=== PATIENT | female | born 1950 | race Caucasian/White ===

== ENCOUNTER 2023-06-02 14:12 | Inpatient (IN) | payer OTHER ==
[~2023-06-02] VITALS: Ht 160 cm; Wt 68.0 kg
[2023-06-02 14:15] VITALS: BP 190/108; PULSE 97; RESP 20; TEMP 98.1; O2SAT 98
[2023-06-02 15:09] LABS: BASOPHILS # (AUTO) 0.1 K/uL (0.00-0.22); BASOPHILS % (AUTO) 0.6 % (0.0-2.0); EOSINOPHILS # (AUTO) 0.1 K/uL (0-0.4); EOSINOPHILS % (AUTO) 0.7 % (0.0-4.0); HEMATOCRIT 33.7 % (36-48); HEMOGLOBIN 10.6 g/dL (12.0-16.0); MEAN CORPUSCULAR HEMOGLOBIN 29 pg (27-31); MEAN CORPUSCULAR HGB CONC 32 g/dL (33-37); MEAN CORPUSCULAR VOLUME 90.6 fL (80-94); MONOCYTES # (AUTO) 0.5 K/uL (0.8-1.0); MONOCYTES % (AUTO) 5.5 % (1.7-9.3); NEUTROPHILS # (AUTO) 8.2 K/uL (1.8-7.7); NEUTROPHILS % (AUTO) 83.2 % (42.2-75.2); PLATELET COUNT (AUTO) 159 K/uL (140-450); RED BLOOD CELL COUNT(AUTO) 3.72 MIL/uL (4.20-5.40); RED CELL DISTRIBUTION WIDTH 17.2 % (11.6-13.7); WHITE BLOOD COUNT (AUTO) 9.8 K/uL (4.8-10.8)
[2023-06-02 15:28] VITALS: BP 147/82; PULSE 92; O2SAT 92
[2023-06-02 15:34] LABS: ALANINE AMINOTRANSFERASE 25 U/L (12-78); ALBUMIN 2.7 g/dL (3.4-5.0); ALKALINE PHOSPHATASE 103 U/L (50-136); ANION GAP 9.2 (8-16); ASPARTATE AMINOTRANSFERASE 27 U/L (15-37); CALCIUM 7.7 mg/dL (8.5-10.1); CARBON DIOXIDE 30.5 mmol/L (21-32); CHLORIDE 103 mmol/L (98-107); GLUCOSE 137 mg/dL (74-106); POTASSIUM 4.7 mmol/L (3.5-5.1); SODIUM SERUM 138 mmol/L (136-145); TOTAL BILIRUBIN 0.3 mg/dL (0.0-1.0); TOTAL PROTEIN, SERUM 5.7 g/dL (6.4-8.2); UREA NITROGEN, BLOOD 30 mg/dL (7-18)
[2023-06-02 15:38] LABS: CREATINE KINASE, TOTAL 37 U/L (26-192)
[2023-06-02 15:44] LABS: FREE T4 (FREE THYROXINE) 1.6 ng/dL (0.76-1.46); THYROID STIMULATING HORMONE 5.23 uIU/mL (0.34-3.74)
[2023-06-02] MEDS ORDERED: ASPIRIN 325 MG TAB PO ONE (15:55)
[2023-06-02] MEDS ORDERED: ONDANSETRON 4 MG/2 ML VIAL IVP PRN (17:05)
[2023-06-02] MEDS ORDERED: ALBUTEROL SULFATE/IPRATROPIU 3 ML SOL IH PRN (17:05)
[2023-06-02] MEDS ORDERED: ACETAMINOPHEN 325 MG TAB PO PRN (17:05)
[2023-06-02] MEDS ORDERED: FUROSEMIDE 40 MG/4 ML VIAL IVP SCH (17:05)
[2023-06-02] MEDS ORDERED: MAG SULF 2000 MG/WATER PREMIX 50 ML IV PRN (17:05)
[2023-06-02] MEDS ORDERED: ZOLPIDEM 10 MG TAB PO PRN (17:05)
[2023-06-02] MEDS ORDERED: POTASSIUM CHLORIDE 10 MEQ TABER PO PRN (17:05)
[2023-06-02 17:26] LABS: FLU A ANTIGEN negative (NEGATIVE); FLU B ANTIGEN NEGATIVE (NEGATIVE)
[2023-06-02 19:00] VITALS: BP 149/81; PULSE 80; PULSE 82; PULSE 86; RESP 19; RESP 22; TEMP 98; O2SAT 97
[2023-06-02 19:10] VITALS: BP 149/81; PULSE 96; O2SAT 96
[2023-06-02 20:00] VITALS: PULSE 80
[2023-06-02] MEDS: PIPERACILLIN/TAZOBACTAM 2.25 GM in DEXTROSE 5% 50 ML IV SCH (21:56)
[2023-06-02] MEDS ORDERED: PIPERACILLIN/TAZOBACTAM 2.25 GM VIAL IV ONE (21:56)
[2023-06-03] VITALS (12 sets, daily range): BP systolic 100–136; BP diastolic 53–83; PULSE 64–82; RESP 16–22; TEMP 97.2–98.1; O2SAT 91–100
[2023-06-03] MEDS ORDERED: PIPERACILLIN/TAZOBACTAM 2.25 GM VIAL IV ONE (05:09)
[2023-06-03] MEDS: PIPERACILLIN/TAZOBACTAM 2.25 GM in DEXTROSE 5% 50 ML IV SCH ×3 (05:29→20:07)
[2023-06-03 07:28] LABS: BASOPHILS % (AUTO) 0.9 % (0.0-2.0); EOSINOPHILS # (AUTO) 0.1 K/uL (0-0.4); HEMATOCRIT 29.8 % (36-48); HEMOGLOBIN 9.4 g/dL (12.0-16.0); LYMPHOCYTES # (AUTO) 0.6 K/uL (2.5-16.5); LYMPHOCYTES % (AUTO) 10.4 % (20.5-51.1); MEAN CORPUSCULAR HEMOGLOBIN 29 pg (27-31); MEAN CORPUSCULAR HGB CONC 32 g/dL (33-37); MONOCYTES # (AUTO) 0.4 K/uL (0.8-1.0); MONOCYTES % (AUTO) 7.2 % (1.7-9.3); NEUTROPHILS # (AUTO) 4.4 K/uL (1.8-7.7); NEUTROPHILS % (AUTO) 79.5 % (42.2-75.2); PLATELET COUNT (AUTO) 124 K/uL (140-450); RED BLOOD CELL COUNT(AUTO) 3.27 MIL/uL (4.20-5.40); WHITE BLOOD COUNT (AUTO) 5.5 K/uL (4.8-10.8)
[2023-06-03] MEDS ORDERED: SIMV-372 PO (08:06)
[2023-06-03] MEDS ORDERED: ASPI-1749 PO (08:06)
[2023-06-03 09:19] LABS: ANION GAP 12.3 (8-16); CALCIUM 7.7 mg/dL (8.5-10.1); CHLORIDE 103 mmol/L (98-107); CREATININE 2.5 mg/dL (0.6-1.3); GLUCOSE 80 mg/dL (74-106); POTASSIUM 4.3 mmol/L (3.5-5.1); SODIUM SERUM 142 mmol/L (136-145); UREA NITROGEN, BLOOD 22 mg/dL (7-18)
[2023-06-03] MEDS: MORPHINE SULFATE 2 MG/ML SYR IVP PRN ×2 (10:55→18:56)
[2023-06-04] VITALS (11 sets, daily range): BP systolic 93–103; BP diastolic 39–50; PULSE 64–80; RESP 16–20; TEMP 97–98.5; O2SAT 95–99
[2023-06-04] MEDS: PIPERACILLIN/TAZOBACTAM 2.25 GM in DEXTROSE 5% 50 ML IV SCH ×3 (04:06→20:14)
[2023-06-04 06:49] LABS: BASOPHILS % (AUTO) 0.1 % (0.0-2.0); HEMATOCRIT 31.2 % (36-48); HEMOGLOBIN 9.7 g/dL (12.0-16.0); LYMPHOCYTES # (AUTO) 0.3 K/uL (2.5-16.5); LYMPHOCYTES % (AUTO) 1.9 % (20.5-51.1); MEAN CORPUSCULAR HEMOGLOBIN 28 pg (27-31); MEAN CORPUSCULAR HGB CONC 31 g/dL (33-37); MEAN CORPUSCULAR VOLUME 91.1 fL (80-94); MONOCYTES # (AUTO) 0.5 K/uL (0.8-1.0); MONOCYTES % (AUTO) 3.1 % (1.7-9.3); NEUTROPHILS # (AUTO) 15.8 K/uL (1.8-7.7); NEUTROPHILS % (AUTO) 94.9 % (42.2-75.2); PLATELET COUNT (AUTO) 134 K/uL (140-450); RED BLOOD CELL COUNT(AUTO) 3.43 MIL/uL (4.20-5.40); WHITE BLOOD COUNT (AUTO) 16.6 K/uL (4.8-10.8)
[2023-06-04 07:26] LABS: ANION GAP 12.7 (8-16); CALCIUM 7.7 mg/dL (8.5-10.1); CARBON DIOXIDE 30.4 mmol/L (21-32); CHLORIDE 100 mmol/L (98-107); CREATININE 3.6 mg/dL (0.6-1.3); GLUCOSE 107 mg/dL (74-106); POTASSIUM 5.1 mmol/L (3.5-5.1); SODIUM SERUM 138 mmol/L (136-145); UREA NITROGEN, BLOOD 37 mg/dL (7-18)
[2023-06-04] MEDS: ECOTRIN 81 MG TABEC PO SCH (08:55)
[2023-06-04] MEDS: ATORVASTATIN 20 MG TAB PO SCH (08:55)
[2023-06-04] MEDS: PANTOPRAZOLE 40 MG TABEC PO SCH (08:56)
[2023-06-04 20:52] LABS: BILIRUBIN,URINE NEGATIVE (NEGATIVE); BLOOD, URINE NEGATIVE (NEGATIVE); LEUKOCYTE ESTERASE ,URINE TRACE (NEGATIVE); NITRITE, URINE POSITIVE (NEGATIVE); PROTEIN,URINE 3+ (NEGATIVE); UGLUCOSE NEGATIVE (NEGATIVE); UROBILINOGEN,URINE 0.2 EU/dL (0.2 - 1)
[2023-06-04 20:53] LABS: APPEARANCE,URINE CLOUDY (CLEAR); COLOR,URINE AMBER (YELLOW)
[2023-06-04 20:56] LABS: BACTERIA,URINE >30 (MANY) /HPF (None Seen); RBC,URINE 0-5 /HPF (0-5); SQUAMOUS EPITHELIAL CELL,UR 0-3 (FEW) /LPF (0-3 (FEW))
[2023-06-05] VITALS (7 sets, daily range): BP systolic 97–118; BP diastolic 41–53; PULSE 65–89; RESP 17–18; TEMP 97.1–98.4; O2SAT 92–99
[2023-06-05] MEDS: PIPERACILLIN/TAZOBACTAM 2.25 GM in DEXTROSE 5% 50 ML IV SCH ×3 (04:33→20:12)
[2023-06-05 07:21] LABS: BASOPHILS % (AUTO) 0.1 % (0.0-2.0); HEMOGLOBIN 7.9 g/dL (12.0-16.0); LYMPHOCYTES # (AUTO) 0.4 K/uL (2.5-16.5); LYMPHOCYTES % (AUTO) 1.9 % (20.5-51.1); MEAN CORPUSCULAR HEMOGLOBIN 28 pg (27-31); MEAN CORPUSCULAR HGB CONC 31 g/dL (33-37); MEAN CORPUSCULAR VOLUME 90.5 fL (80-94); MONOCYTES # (AUTO) 0.4 K/uL (0.8-1.0); MONOCYTES % (AUTO) 1.9 % (1.7-9.3); NEUTROPHILS % (AUTO) 96.1 % (42.2-75.2); PLATELET COUNT (AUTO) 127 K/uL (140-450); RED BLOOD CELL COUNT(AUTO) 2.77 MIL/uL (4.20-5.40); WHITE BLOOD COUNT (AUTO) 18.7 K/uL (4.8-10.8)
[2023-06-05 08:07] LABS: ANION GAP 13.1 (8-16); CALCIUM 7.6 mg/dL (8.5-10.1); CARBON DIOXIDE 28.1 mmol/L (21-32); CHLORIDE 104 mmol/L (98-107); CREATININE 2.8 mg/dL (0.6-1.3); GLUCOSE 88 mg/dL (74-106); POTASSIUM 4.2 mmol/L (3.5-5.1); SODIUM SERUM 141 mmol/L (136-145); UREA NITROGEN, BLOOD 27 mg/dL (7-18)
[2023-06-05] MEDS: ECOTRIN 81 MG TABEC PO SCH (08:36)
[2023-06-05] MEDS: ATORVASTATIN 20 MG TAB PO SCH (08:36)
[2023-06-05] MEDS: PANTOPRAZOLE 40 MG TABEC PO SCH (08:36)
[2023-06-06] VITALS (8 sets, daily range): BP systolic 106–118; BP diastolic 44–55; PULSE 80–89; RESP 18–19; TEMP 97.3–98.4; O2SAT 94–99
[2023-06-06] MEDS: PIPERACILLIN/TAZOBACTAM 2.25 GM in DEXTROSE 5% 50 ML IV SCH ×3 (04:04→20:10)
[2023-06-06 07:13] LABS: BASOPHILS % (AUTO) 0.1 % (0.0-2.0); HEMATOCRIT 27.3 % (36-48); HEMOGLOBIN 8.6 g/dL (12.0-16.0); LYMPHOCYTES # (AUTO) 0.2 K/uL (2.5-16.5); MEAN CORPUSCULAR HEMOGLOBIN 28 pg (27-31); MEAN CORPUSCULAR HGB CONC 31 g/dL (33-37); MEAN CORPUSCULAR VOLUME 90.6 fL (80-94); MONOCYTES # (AUTO) 0.3 K/uL (0.8-1.0); MONOCYTES % (AUTO) 1.7 % (1.7-9.3); NEUTROPHILS # (AUTO) 16.1 K/uL (1.8-7.7); PLATELET COUNT (AUTO) 110 K/uL (140-450); RED BLOOD CELL COUNT(AUTO) 3.01 MIL/uL (4.20-5.40); RED CELL DISTRIBUTION WIDTH 16.3 % (11.6-13.7); WHITE BLOOD COUNT (AUTO) 16.7 K/uL (4.8-10.8)
[2023-06-06 07:42] LABS: LYMPHOCYTES % (AUTO) 1.4 % (20.5-51.1); NEUTROPHILS % (AUTO) 96.8 % (42.2-75.2)
[2023-06-06 08:02] LABS: ANION GAP 9.8 (8-16); CALCIUM 7.8 mg/dL (8.5-10.1); CARBON DIOXIDE 30.8 mmol/L (21-32); CHLORIDE 103 mmol/L (98-107); CREATININE 2.3 mg/dL (0.6-1.3); GLUCOSE 110 mg/dL (74-106); POTASSIUM 3.6 mmol/L (3.5-5.1); SODIUM SERUM 140 mmol/L (136-145); UREA NITROGEN, BLOOD 23 mg/dL (7-18)
[2023-06-06] MEDS: VIT-B COMP/VIT-C/FOLIC ACID 1 TAB PO SCH (08:45)
[2023-06-06] MEDS: ECOTRIN 81 MG TABEC PO SCH (08:46)
[2023-06-06] MEDS: ATORVASTATIN 20 MG TAB PO SCH (08:46)
[2023-06-06] MEDS: PANTOPRAZOLE 40 MG TABEC PO SCH (08:46)
[2023-06-07] VITALS: BP 104/56; PULSE 79; RESP 16; TEMP 97.9; O2SAT 98
[2023-06-07] MEDS: PIPERACILLIN/TAZOBACTAM 2.25 GM in DEXTROSE 5% 50 ML IV SCH (04:48)
[2023-06-07 06:37] LABS: BASOPHILS % (AUTO) 0.1 % (0.0-2.0); EOSINOPHILS % (AUTO) 0.2 % (0.0-4.0); HEMATOCRIT 24.8 % (36-48); HEMOGLOBIN 7.9 g/dL (12.0-16.0); LYMPHOCYTES # (AUTO) 0.5 K/uL (2.5-16.5); LYMPHOCYTES % (AUTO) 4.8 % (20.5-51.1); MEAN CORPUSCULAR HEMOGLOBIN 29 pg (27-31); MEAN CORPUSCULAR HGB CONC 32 g/dL (33-37); MONOCYTES # (AUTO) 0.6 K/uL (0.8-1.0); MONOCYTES % (AUTO) 5.4 % (1.7-9.3); NEUTROPHILS # (AUTO) 9.1 K/uL (1.8-7.7); NEUTROPHILS % (AUTO) 89.5 % (42.2-75.2); PLATELET COUNT (AUTO) 123 K/uL (140-450); RED BLOOD CELL COUNT(AUTO) 2.75 MIL/uL (4.20-5.40); RED CELL DISTRIBUTION WIDTH 17.1 % (11.6-13.7); WHITE BLOOD COUNT (AUTO) 10.2 K/uL (4.8-10.8)
[2023-06-07 06:42] LABS: ANION GAP 11.2 (8-16); CALCIUM 7.6 mg/dL (8.5-10.1); CARBON DIOXIDE 29.4 mmol/L (21-32); CHLORIDE 102 mmol/L (98-107); CREATININE 3.5 mg/dL (0.6-1.3); GLUCOSE 101 mg/dL (74-106); POTASSIUM 3.6 mmol/L (3.5-5.1); SODIUM SERUM 139 mmol/L (136-145); UREA NITROGEN, BLOOD 40 mg/dL (7-18)
[2023-06-07 08:00] VITALS: BP 119/56; PULSE 75; RESP 18; TEMP 99.2; O2SAT 98; O2SAT 99
[2023-06-07] MEDS ORDERED: ALBUMIN HUMAN 25% 100 ML IV SCH (09:00)
[2023-06-07] MEDS: VIT-B COMP/VIT-C/FOLIC ACID 1 TAB PO SCH (11:18)
[2023-06-07] MEDS: PANTOPRAZOLE 40 MG TABEC PO SCH (11:18)
[2023-06-07] MEDS: ECOTRIN 81 MG TABEC PO SCH (11:18)
[2023-06-07] MEDS: ATORVASTATIN 20 MG TAB PO SCH (11:19)
[2023-06-07 16:00] VITALS: BP 125/58; PULSE 77; RESP 18; TEMP 98.5; O2SAT 99
[2023-06-07 19:46] VITALS: PULSE 83; RESP 18; O2SAT 99
[2023-06-07 20:00] VITALS: PULSE 77; RESP 17; RESP 19; TEMP 98.5; O2SAT 100
[2023-06-08] VITALS: BP 125/58; PULSE 77; RESP 19; TEMP 98.5; O2SAT 100
[2023-06-08 04:02] VITALS: BP 110/61; PULSE 80; RESP 17; TEMP 98.2; O2SAT 99
[2023-06-08 07:06] LABS: BASOPHILS % (AUTO) 0.2 % (0.0-2.0); EOSINOPHILS % (AUTO) 0.6 % (0.0-4.0); HEMOGLOBIN 7.9 g/dL (12.0-16.0); LYMPHOCYTES # (AUTO) 0.5 K/uL (2.5-16.5); LYMPHOCYTES % (AUTO) 7.4 % (20.5-51.1); MEAN CORPUSCULAR HEMOGLOBIN 29 pg (27-31); MEAN CORPUSCULAR HGB CONC 32 g/dL (33-37); MEAN CORPUSCULAR VOLUME 91.2 fL (80-94); MONOCYTES # (AUTO) 0.8 K/uL (0.8-1.0); MONOCYTES % (AUTO) 11.8 % (1.7-9.3); NEUTROPHILS # (AUTO) 5.1 K/uL (1.8-7.7); PLATELET COUNT (AUTO) 113 K/uL (140-450); RED BLOOD CELL COUNT(AUTO) 2.74 MIL/uL (4.20-5.40); RED CELL DISTRIBUTION WIDTH 16.8 % (11.6-13.7); WHITE BLOOD COUNT (AUTO) 6.4 K/uL (4.8-10.8)
[2023-06-08 07:27] LABS: ANION GAP 12.5 (8-16); CALCIUM 7.7 mg/dL (8.5-10.1); CARBON DIOXIDE 27.2 mmol/L (21-32); CHLORIDE 105 mmol/L (98-107); GLUCOSE 97 mg/dL (74-106); POTASSIUM 3.7 mmol/L (3.5-5.1); SODIUM SERUM 141 mmol/L (136-145); UREA NITROGEN, BLOOD 35 mg/dL (7-18)
[2023-06-08 08:00] VITALS: PULSE 79; RESP 18; TEMP 97.9; O2SAT 100
[2023-06-08] MEDS ORDERED: EPOETIN ALFA-EPBX 4,000 UNITS/ML VIAL SUBQ SCH (09:00)
[2023-06-08] MEDS: ECOTRIN 81 MG TABEC PO SCH (09:21)
[2023-06-08] MEDS: ATORVASTATIN 20 MG TAB PO SCH (09:21)
[2023-06-08] MEDS: PANTOPRAZOLE 40 MG TABEC PO SCH (09:21)
[2023-06-08] MEDS: VIT-B COMP/VIT-C/FOLIC ACID 1 TAB PO SCH (09:21)
[2023-06-08] MEDS: CALCIUM ACETATE 667 MG TAB PO SCH ×2 (09:47→13:13)
[2023-06-08] MEDS: DOCUSATE SODIUM 100 MG GELCAP PO PRN ×2 (09:47→09:50)
[2023-06-08] MEDS ORDERED: MORP2SOL18 IVP (12:55)
[2023-06-08] MEDS ORDERED: CALC667C3 PO (12:55)
[2023-06-08] MEDS ORDERED: HEPA500056 SUBQ (12:55)
[2023-06-08] MEDS ORDERED: ONDA2SOL45 IVP (12:55)
[2023-06-08] MEDS ORDERED: ATOR20TA40 PO (12:55)
[2023-06-08] MEDS ORDERED: ZOLP10TA1 PO (12:55)
[2023-06-08] MEDS ORDERED: [UNRECOGNIZED DRUG - CODE] SUBQ (12:55)
[2023-06-08] MEDS ORDERED: Potassium Chloride PO (12:55)
[2023-06-08] MEDS ORDERED: PRO5 PO (12:55)
[2023-06-08] MEDS ORDERED: PANT40EC56 PO (12:55)
[2023-06-08] MEDS ORDERED: ASPI-1856 PO (12:55)
[2023-06-08] MEDS ORDERED: ACET-1182 PO (12:55)
[2023-06-08] MEDS ORDERED: ALBU3SOL83 IH (12:55)
[2023-06-08] MEDS ORDERED: NEP PO (12:55)
[2023-06-08] MEDS ORDERED: DOCU-299 PO (12:55)
[2023-06-08] MEDS ORDERED: MIDODRINE 5 MG TAB PO SCH (13:00)
[2023-06-08 15:13] VITALS: BP 130/60; PULSE 79; RESP 18; TEMP 97.9
[2023-06-08 16:00] VITALS: BP 108/59; PULSE 79; RESP 18; TEMP 97.9; O2SAT 100
== END 2023-06-08 18:10 | DRG 280 ==
LOC: MED 14:12 → MTU 17:11
PROVIDERS: ADMIT General Practice; ATTEND General Practice
PROC: 5A1D70Z Performance of Urinary Filtration, Intermittent, Less than 6 Hours Per Day (ICD-10-PCS; principal; 2023-06-02)
PROC: 5A09357 Assistance with Respiratory Ventilation, Less than 24 Consecutive Hours, Continuous Positive Airway Pressure (ICD-10-PCS; 2023-06-02)
PROC: 5A1D70Z Performance of Urinary Filtration, Intermittent, Less than 6 Hours Per Day (ICD-10-PCS; 2023-06-04)
PROC: 5A1D70Z Performance of Urinary Filtration, Intermittent, Less than 6 Hours Per Day (ICD-10-PCS; 2023-06-05)
PROC: 5A1D70Z Performance of Urinary Filtration, Intermittent, Less than 6 Hours Per Day (ICD-10-PCS; 2023-06-07)
DX: I13.2 Hypertensive heart and chronic kidney disease with heart failure and with stage 5 chronic kidney disease, or end stage renal disease (principal); G93.41 Metabolic encephalopathy; I21.A1 Myocardial infarction type 2; I50.43 Acute on chronic combined systolic (congestive) and diastolic (congestive) heart failure; J96.01 Acute respiratory failure with hypoxia; N17.0 Acute kidney failure with tubular necrosis; N18.6 End stage renal disease; E44.0 Moderate protein-calorie malnutrition; I42.9 Cardiomyopathy, unspecified; Z20.822 Contact with and (suspected) exposure to COVID-19; Z66 Do not resuscitate; D64.9 Anemia, unspecified; R62.7 Adult failure to thrive; Z90.710 Acquired absence of both cervix and uterus; Z68.26 Body mass index [BMI] 26.0-26.9, adult; Z99.2 Dependence on renal dialysis; Z79.899 Other long term (current) drug therapy; Z79.82 Long term (current) use of aspirin
CPT/HCPCS: 36415; 71045; 76700; 80048; 80053; 81001; 82140; 82550; 82553; 83036; 83605; 83690; 83735; 83880; 84100; 84439; 84443; 84484; 85025; 87040; 87081; 87086; 93005; 94640; 94660; 97112; 97116; 97530; 99285; J1644; J2270; J2405; J2543; J3475; J7060; P9046; Q0092; Q5106